=== PATIENT | male | born 1955 | race Hispanic/Latino ===

== ENCOUNTER 2017-09-11 05:45 | Day surgery (SDC) | payer OTHER ==
[2017-09-09 14:03] LABS: BASOPHILS % (AUTO) 0.4 % (0.0-5.0); HEMATOCRIT 50.5 % (42-54); MEAN CORPUSCULAR HEMOGLOBIN 29.9 pg (27.0-33.0); MEAN CORPUSCULAR HGB CONC 34.5 g/dL (32.0-36.0); MEAN CORPUSCULAR VOLUME 86.8 fL (79-99); NEUTROPHILS % (AUTO) 54.6 % (40.0-77.0); PLATELET COUNT (AUTO) 295 K/uL (130-400); RED BLOOD CELL COUNT(AUTO) 5.82 MIL/uL (4.50-6.20); RED CELL DISTRIBUTION WIDTH 13.2 % (11.0-15.5)
[2017-09-09 14:17] VITALS: BP 139/82
[2017-09-09 14:19] LABS: APPEARANCE,URINE Clear (CLEAR); BILIRUBIN,URINE Negative (NEGATIVE); COLOR,URINE Yellow (YELLOW); GLUCOSE, URINE (UA) >=1000 mg/dL (NEGATIVE); KETONES,URINE 15 mg/dL (NEGATIVE); LEUKOCYTE ESTERASE ,URINE Negative (NEGATIVE); NITRATE,URINE Negative (NEGATIVE); OCCULT BLOOD,URINE Negative (NEGATIVE); PROTEIN,URINE Negative (NEGATIVE)
[2017-09-09 14:27] LABS: INR 0.95 (0.85-1.15); PARTIAL THROMBOPLASTIN TIME 26.4 SEC (26.3-35.5)
[2017-09-09 14:28] LABS: POTASSIUM 4.1 mmol/L (3.5-5.1)
[2017-09-09 14:31] LABS: BACTERIA,URINE Rare /HPF (None Seen); SQUAMOUS EPITHELIAL CELL,UR Rare /HPF (0-2); WBC,URINE 0-1 /HPF (0-1)
[2017-09-11] VITALS (9 sets, daily range): BP systolic 108–139; BP diastolic 67–92
[~2017-09-11 05:45] MED LIST: AMLO10TA2 PO; ATOR40TA71 PO; DAPA5TAB PO; GLIP5TAB11 PO; METF500T6 PO; METO100T14 PO
[2017-09-11] MEDS ORDERED: SODIUM CHLORIDE 0.9% 1000ML 1,000 ML IV ONE (07:31)
[2017-09-11] MEDS ORDERED: INSULIN HUMULIN R 100 UNIT/ML 3ML IV SCH (08:15)
[2017-09-11] MEDS ORDERED: INSULIN HUMULIN R 100 UNIT/ML 3ML ONE (08:25)
[2017-09-11] MEDS ORDERED: IOPAMIDOL-370 75 ML VIAL IV ONE (10:28)
[2017-09-11] MEDS ORDERED: HEPARIN SODIUM 1000UNIT/ML 10ML VIAL ONE (10:28)
[2017-09-11] MEDS ORDERED: NITROGLYCERIN 5 MG/ML 10 ML VIAL IV ONE (10:28)
[2017-09-11] MEDS ORDERED: LIDOCAINE HCL 2% 20ML ONE (10:28)
[2017-09-11] MEDS ORDERED: BIVALIRUDIN 250 MG/VIAL IV ONE (10:28)
[2017-09-11] MEDS ORDERED: SODIUM CHLORIDE 0.9% 1000ML 1,000 ML IV SCH (11:22)
== END 2017-09-11 15:55 | disposition home or self-care (01) ==
LOC: DAH 05:45
PROVIDERS: ATTEND Internal Medicine Cardiovascular Disease
DX: I25.119 Atherosclerotic heart disease of native coronary artery with unspecified angina pectoris (principal); I10 Essential (primary) hypertension; E78.00 Pure hypercholesterolemia, unspecified; E11.9 Type 2 diabetes mellitus without complications; Z79.84 Long term (current) use of oral hypoglycemic drugs; Z79.899 Other long term (current) drug therapy
CPT/HCPCS: 36415; 71045; 80048; 81001; 82948 ×2; 85025; 85610; 85730; 93005; 93458; A4606; C1760; C1894; J1644; J1815; J3490 ×2; J7030; Q9967; J0583

== ENCOUNTER 2020-06-23 23:35 | Emergency (ER) | payer OTHER ==
[~2020-06-23 23:35] MED LIST changes: +ALBUHFA IH; -AMLO10TA2 PO; +APIX2.5T PO; +ASCO500T20 PO; +ASPI-1005 PO; +CHLO50TA24 PO; -DAPA5TAB PO; -GLIP5TAB11 PO; +INSU100I3 SQ; +INSU3INS3 SQ; +METF-444 PO; -METF500T6 PO; -METO100T14 PO; +METO25 PO; +OLOP5DRO14 OP; +PANT40TA54 PO; +REPA2TAB8 PO; +SILD20TA14 PO; +SODI15DR8 OP; +SYRI-1628 MC; +TAMS-1 PO; +TRIA15CR48 TP; +ZINC220C6 PO
[2020-06-24] LABS: EOSINOPHILS % (AUTO) 16.5 % (0.0-8.0); HEMATOCRIT 47.6 % (42-54); LYMPHOCYTES % (AUTO) 19.7 % (21.0-51.0); MEAN CORPUSCULAR HEMOGLOBIN 29.5 pg (27.0-33.0); MEAN CORPUSCULAR HGB CONC 33.2 g/dL (32.0-36.0); MONOCYTES % (AUTO) 9.6 % (3.0-13.0); NEUTROPHILS % (AUTO) 52.9 % (40.0-77.0); PLATELET COUNT (AUTO) 232 K/uL (130-400); RED BLOOD CELL COUNT(AUTO) 5.35 MIL/uL (4.50-6.20); RED CELL DISTRIBUTION WIDTH 14.7 % (11.0-15.5); WHITE BLOOD COUNT (AUTO) 11.5 K/uL (4.8-10.8)
[2020-06-24 00:11] LABS: CREATININE 1.3 mg/dL (0.5-1.5)
[2020-06-24 00:16] LABS: ALBUMIN 3.5 g/dL (3.5-5.0); BILIRUBIN,TOTAL 1.4 mg/dL (0.2-1.0); TOTAL PROTEIN, SERUM 7.3 g/dL (6.0-8.3)
[2020-06-24] MEDS ORDERED: CLINDAMYCIN 900 MG/D5% WATER 50 ML IV ONE (00:27)
[2020-06-24 00:35] LABS: INR 0.99 (0.85-1.15); PROTHROMBIN TIME 10.8 SEC (9.6-11.6)
[2020-06-24 00:37] LABS: PARTIAL THROMBOPLASTIN TIME 26.5 SEC (26.3-35.5)
== END 2020-06-24 01:09 | disposition home or self-care (01) ==
LOC: EDH 23:35
DX: L03.90 Cellulitis, unspecified (principal); E11.9 Type 2 diabetes mellitus without complications; I10 Essential (primary) hypertension
CPT/HCPCS: 36415; 80053; 83605; 85025; 85610; 85730; 93971; 96365; 99284; J3490

== ENCOUNTER → 2023-04-16 | Outpatient (CLI) | payer MEDICARE ==
[~2023-04-16] MED LIST changes: +AEC81 PO; -ALBUHFA IH; -APIX2.5T PO; -ASCO500T20 PO; -ATOR40TA71 PO; -CHLO50TA24 PO; +DAPA10TA PO; +ESOM20CA39 PO; +INSU100C6 SQ; -INSU100I3 SQ; +INSU100I75 SQ; -INSU3INS3 SQ; +LEVO75CA5 PO; -METO25 PO; +METO50TA18 PO; -OLOP5DRO14 OP; -PANT40TA54 PO; -REPA2TAB8 PO; +ROSU20TA73 PO; -SILD20TA14 PO; -SODI15DR8 OP; -SYRI-1628 MC; -TAMS-1 PO; -TRIA15CR48 TP; -ZINC220C6 PO
[2023-04-16 10:22] LABS: BASOPHILS # (AUTO) 0.08 K/uL (0.00-0.20); EOSINOPHILS # (AUTO) 0.74 K/uL (0.00-0.70); EOSINOPHILS % (AUTO) 9.1 % (0.0-8.0); HEMATOCRIT 51.1 % (42-54); IMMATURE GRANULOCYTE ABSOLUTE 0.02 K/uL (0-1); LYMPHOCYTES # (AUTO) 1.8 K/uL (1.0-4.8); LYMPHOCYTES % (AUTO) 22.4 % (21.0-51.0); MEAN CORPUSCULAR HEMOGLOBIN 29.1 pg (27.0-33.0); MEAN CORPUSCULAR HGB CONC 31.9 g/dL (32.0-36.0); MEAN CORPUSCULAR VOLUME 91.3 fL (79-99); MONOCYTES # (AUTO) 0.8 K/uL (0.1-1.0); MONOCYTES % (AUTO) 9.4 % (3.0-13.0); NEUTROPHILS # (AUTO) 4.7 K/uL (1.8-7.7); NEUTROPHILS % (AUTO) 57.9 % (40.0-77.0); PLATELET COUNT (AUTO) 209 K/uL (130-400); RED CELL DISTRIBUTION WIDTH 14.3 % (11.0-15.5); WHITE BLOOD COUNT (AUTO) 8.1 K/uL (4.8-10.8)
[2023-04-16 10:31] LABS: CREATININE 1.1 mg/dL (0.5-1.5); INR <= 0.93 (0.85-1.15); POTASSIUM 4.9 mmol/L (3.5-5.1); PROTHROMBIN TIME 10.6 SEC (9.6-11.6)
[2023-04-16 10:33] LABS: PARTIAL THROMBOPLASTIN TIME 27.9 SEC (26.3-35.5)
== END | disposition home or self-care (01) ==
LOC: LAB 09:51
PROVIDERS: ATTEND Internal Medicine Cardiovascular Disease
DX: I70.223 Atherosclerosis of native arteries of extremities with rest pain, bilateral legs (principal); R07.89 Other chest pain
CPT/HCPCS: 36415; 80048; 85025; 85610; 85730

== ENCOUNTER 2024-04-21 11:49 | Emergency (ER) | payer MEDICARE ==
[~2024-04-21] VITALS: Ht 177.8 cm; Wt 113.4 kg
[~2024-04-21 11:49] MED LIST changes: -ESOM20CA39 PO; +ESOM20CA51 PO; -ROSU20TA73 PO; +ROSU20TA98 PO
--- NOTE | 2024-04-21 12:31 | EKG ---
[facility] Test Date: 2024-04-21 Test Time: 12:25:08 Pat Name: SONY SMALL Department: ED Room: Gender: M Dental Insurance Coordinator: [id number] : 1955 Requested By: DANIELLE CALDERON Order Number: [id number] Reading MD: Otis Dillard Measurements Intervals [place] Rate: 71 P: 69 WV: 148 QRS: -73 QRSD: 134 T: 69 QT: 411 QTc: 450 Interpretive Statements Sinus rhythm Multiform ventricular premature complexes RBBB and LAFB Compared to ECG 10/30/2021 05:51:35 Bifascicular block no longer present Electronically Signed On 04-22-2024 20:01:35 PACE ANALYST by Otis Dillard Please click the below link to view image of tracing.
--- NOTE | 2024-04-21 12:58 | HMCIMG ---
CHEST 1VW REASON: CHEST PAIN COMPARISON: None. FINDINGS: Single view of the chest was obtained. Lungs are clear. Heart size is normal. There is no pulmonary vascular congestion. Mediastinum and bony thorax appear unremarkable. Previous median sternotomy again noted. IMPRESSION: 1. Normal single view chest x-ray.
[2024-04-21 13:00] LABS: BASOPHILS # (AUTO) 0.06 K/uL (0.00-0.20); BASOPHILS % (AUTO) 0.7 % (0.0-5.0); EOSINOPHILS # (AUTO) 0.77 K/uL (0.00-0.70); EOSINOPHILS % (AUTO) 9.1 % (0.0-8.0); HEMATOCRIT 51.5 % (42-54); IMMATURE GRANULOCYTE ABSOLUTE 0.02 K/uL (0-1); LYMPHOCYTES % (AUTO) 23.6 % (21.0-51.0); MEAN CORPUSCULAR HEMOGLOBIN 29.5 pg (27.0-33.0); MEAN CORPUSCULAR HGB CONC 32.8 g/dL (32.0-36.0); MONOCYTES # (AUTO) 0.7 K/uL (0.1-1.0); MONOCYTES % (AUTO) 8.4 % (3.0-13.0); NEUTROPHILS # (AUTO) 4.9 K/uL (1.8-7.7); PLATELET COUNT (AUTO) 222 K/uL (130-400); RED BLOOD CELL COUNT(AUTO) 5.72 MIL/uL (4.50-6.20); RED CELL DISTRIBUTION WIDTH 14.2 % (11.0-15.5); WHITE BLOOD COUNT (AUTO) 8.4 K/uL (4.8-10.8)
[2024-04-21 13:10] LABS: CREATININE 1.2 mg/dL (0.5-1.3); POTASSIUM 4.4 mmol/L (3.5-5.1)
[2024-04-21 14:15] LABS: B-TYPE NATRIURETIC PEPTIDE 26 pg/mL (0-100)
--- NOTE | 2024-04-21 14:53 | ERN ---
ED Note History of Present Illness Stated Complaint: CP Chief Complaint: Chest Pain Time Seen by MD: 11:55 Dictation: 68-year-old male presents to the ED for evaluation of chest pain onset three days ago. Patient reports palpitations and shortness a breath, but denies any other associated symptoms at this time. Patient states he was sent over by Dr. Torre for evaluation. Allergies: Coded Allergies: No Known Drug Allergies (Unverified Allergy, Unknown, 09/30/17) Home Meds Active Scripts Aspirin (ASPIRIN 81MG CHEW TAB) 81 Mg Tab.chew, 81 MG PO DAILY for 30 Days, #30 TAB.CHEW Prov:MELODIE YUN MD 10/07/17 Reported Medications Aspirin (ASPIRIN 81 MG ECTAB) 81 Mg Ectab, 81 MG PO DAILY, TAB.EC 12/11/22 Esomeprazole Magnesium (Esomeprazole Magnesium) 20 Mg Capsule.dr, 20 MG PO BID, CAP 12/11/22 Rosuvastatin Calcium (Rosuvastatin Calcium) 20 Mg Tablet, 20 MG PO DAILY, TAB 12/11/22 Levothyroxine Sodium (Levothyroxine) 75 Mcg Capsule, 75 MCG PO ACBKFST, CAP 12/11/22 Dapagliflozin Propanediol (Farxiga) 10 Mg Tablet, 10 MG PO DAILY, TAB 12/11/22 Metoprolol Tartrate (Metoprolol Tartrate) 50 Mg Tablet, 50 MG PO BID, TAB 12/11/22 Insulin Aspart (Novolog) 100 Unit/1 Ml Cartridge, 10 UNITS SQ HS, CARTRIDGE 12/11/22 Insulin Aspart (Novolog) 100 Unit/1 Ml Cartridge, 15 UNITS SQ ACLUNCH, CARTRIDGE 12/11/22 Insulin Glargine,Hum.rec.anlog (Basaglar Tempo Pen U-100) 100 Unit/1 Ml Insuln.pen, 33 UNIT SQ HS, SYRINGE 12/11/22 Insulin Aspart (Novolog) 100 Unit/1 Ml Cartridge, 19 UNITS SQ ACBKFST, CARTRIDGE 12/11/22 Metformin HCl (Metformin HCl) 500 Mg Tablet, 500 MG PO BID, TAB 03/21/20 Past Medical History Past Medical History: A-Fib, Diabetes-Type II, High Cholesterol, Heart Disease, Hypertension Additional Past Medical Hx: COVID X 2 Surgical History: CABG Social History: Negative Review of System Dictation Constitutional: Negative for fever,chills, and weight loss Eyes: Negative for injury, pain,redness, and discharge ENT: Negative for injury,pain or swelling Cardiovascular: Positive for chest pain and palpitations Respiratory: Positive for shortness of breath negative for cough, and wheezing, Abdomen/GI: Negative for abdominal pain, nausea, vomiting, diarrhea, and constipation Back: Negative for injury and pain : Negative for injury, bleeding and discharge MS/Extremity: Negative for injury and deformity Skin: Negative for rash, and discoloration Neuro: Negative for headache, weakness, numbness, tingling, and seizure Psych: Negative for suicide ideation, homicidal ideation, and hallucinations Initial Vital Sign VS Vital Signs Date Time Temp Pulse Resp B/P (MAP) Pulse Ox O2 Delivery O2 Flow Rate FiO2 04/21/24 13:01 98.6 68 20 156/88 98 Room Air 0 04/21/24 15:50 21 Physical Exam Dictation General: awake, alert, NAD Head/Face: Normocephalic, atraumatic Eyes: PERRL, EOMI, vision at baseline ENT: oral cavity clear, TMs clear, no signs of infection Neck: Trachea midline, supple, no nuchal rigidity Cardiovascular: RRR, normal S1/S2, No MRGs, no JVD Respiratory: CTAB, no respiratory distress, No rales or wheezes Abdomen: Soft, non-tender, non-distended, normal bowel sounds, no guarding or rebound. Skin: Warm, dry, normal turgor, no rash MS/Extremity: Pulses equal, no cyanosis, neurovascular intact, FROM Neuro: COAx4, GCS 15, strength 5/5, CN 2-12 intact, normal cerebellar exam, normal gait, Psych: Normal behavior, mood, and affect normal Results (Laboratory/Radiology) Laboratory/Radiology Laboratory Tests Test 04/21/24 12:32 04/21/24 13:29 White Blood Count 8.4 K/uL (4.8-10.8) Red Blood Count 5.72 MIL/uL (4.50-6.20) Hemoglobin 16.9 g/dL (14.0-18.0) Hematocrit 51.5 % (42-54) Mean Corpuscular Volume 90.0 fL (79-99) Mean Corpuscular Hemoglobin 29.5 pg (27.0-33.0) Mean Corpuscular Hemoglobin Concent 32.8 g/dL (32.0-36.0) Red Cell Distribution Width 14.2 % (11.0-15.5) Platelet Count 222 K/uL (130-400) Mean Platelet Volume 9.5 fL (7.5-10.5) Immature Granulocyte % (Auto) 0.2 % (0-1) Neutrophils (%) (Auto) 58.0 % (40.0-77.0) Lymphocytes (%) (Auto) 23.6 % (21.0-51.0) Monocytes (%) (Auto) 8.4 % (3.0-13.0) Eosinophils (%) (Auto) 9.1 % (0.0-8.0) H Basophils (%) (Auto) 0.7 % (0.0-5.0) Neutrophils # (Auto) 4.9 K/uL (1.8-7.7) Lymphocytes # (Auto) 2.0 K/uL (1.0-4.8) Monocytes # (Auto) 0.7 K/uL (0.1-1.0) Eosinophils # (Auto) 0.77 K/uL (0.00-0.70) H Basophils # (Auto) 0.06 K/uL (0.00-0.20) Absolute Immature Granulocyte (auto 0.02 K/uL (0-1) Nucleated Red Blood Cells 0.0 % (0.0-0.19) Sodium Level 139 mmol/L (136-145) Potassium Level 4.4 mmol/L (3.5-5.1) Chloride Level 103 mmol/L (101-111) Carbon Dioxide Level 33 mmol/L (21-32) H Blood Urea Nitrogen 17 mg/dL (7-18) Creatinine 1.2 mg/dL (0.5-1.3) Glomerular Filtration Rate Calc 66 mL/min (>90) Random Glucose 240 mg/dL (70-105) H Total Calcium 9.0 mg/dL (8.5-10.1) Total Creatine Kinase 151 U/L (21-232) # B-Type Natriuretic Peptide 26 pg/mL (0-100) Troponin I < 0.05 ng/mL (0.00-0.05) Labs Reviewed?: Yes ED Course ED Course Orders Procedure Category Date Status Time Vital Signs Per CPOE 04/21/24 Transmitted Routine 11:54 B-Type Natriuretic LAB 04/21/24 Complete Peptide 11:54 Chest 1vw RAD 04/21/24 Resulted 11:54 12 Lead Ekg Tracing- EKG 04/21/24 Complete Technical 11:54 Oxygen By Nc/Pulse Ox CPOE 04/21/24 Transmitted 11:54 Maintain Iv CPOE 04/21/24 Transmitted 11:54 Iv Insertion CPOE 04/21/24 Transmitted 11:54 Cardiac Monitoring CPOE 04/21/24 Transmitted 11:54 Pulse Oximetry With CPOE 04/21/24 Transmitted Vs And Prn 11:54 Cbc With Differential LAB 04/21/24 Complete 11:54 Activity: Br W/Brp CPOE 04/21/24 Transmitted With Assist 11:54 Creatine Kinase, Total LAB 04/21/24 Complete 11:54 Troponin Poc Order LAB 04/21/24 Complete Only 11:54 Bedside Troponin-I LAB.ER 04/21/24 Complete (Poc) 11:54 Basic Metabolic Panel LAB 04/21/24 Complete 11:54 Vital Signs Date Time Temp Pulse Resp B/P (MAP) Pulse Ox O2 Delivery O2 Flow Rate FiO2 04/21/24 15:50 97.7 77 18 132/71 98 Room Air* 0 21 04/21/24 13:01 98.6 68 20 156/88 98 Room Air 0 Medical Decision Making MDM MDM: Differential diagnosis: Chest pain Risk of complication and/or morbidity or mortality of patient management: None Medications-Per medication reconciliation Need for hospitalization: Patient does not meet criteria for hospitalization. Need for emergency major/minor surgery: No There are no social concerns with this patient. Prescription drug management Prescriptions will include symptomatic care I independently interpreted the test that were performed, results were reviewed by me and considered findings on radiology if ordered. Medical management and examination interpretation discussions were had by me with other qualified healthcare professionals as indicated for the patient's care. DX & DISP Departure Condition: Stable Referrals: JOSEPH CHAVIS MD (PCP) I have reviewed, & agreed with my scribe's, documentation. (I Margareth Cruz am acting as a scribe for RIWIN Cruz) I performed the substantive portion of the visit. I have reviewed and personally made and approve the management plan that is documented in the notes by myself or the DEANNA. I acknowledge full responsibility for the patient's management plan. I personally scribed for LANE CRUZ ([facility]) on 04/21/24 at 14:53. Electronically submitted by Margareth Cruz ([facility]). LANE CRUZ Apr 21, 2024 14:53
--- NOTE | 2024-04-21 14:56 | ERN ---
General Chief Complaint: Chest Pain Stated Complaint: CP Time Seen by MD: 11:55 Time Seen by Midlevel: 11:55 Source: patient History of Present Illness Initial Comments Patient is a 68-year-old male with a past medical history of type 2 diabetes, hyperlipidemia, coronary artery disease, and atrial fibrillation presenting to the emergency department with chest pain that started three days ago. Associated symptoms include shortness of breath and palpitations. Patient does report feeling significantly improved today but his veterinary practice manager sent him over just to be on the safe side. Patient has no other complaints on arrival Allergies: Coded Allergies: No Known Drug Allergies (Unverified Allergy, Unknown, 09/30/17) Home Meds Active Scripts Aspirin (ASPIRIN 81MG CHEW TAB) 81 Mg Tab.chew, 81 MG PO DAILY for 30 Days, #30 TAB.CHEW Prov:MELODIE YUN MD 10/07/17 Reported Medications Aspirin (ASPIRIN 81 MG ECTAB) 81 Mg Ectab, 81 MG PO DAILY, TAB.EC 12/11/22 Esomeprazole Magnesium (Esomeprazole Magnesium) 20 Mg Capsule.dr, 20 MG PO BID, CAP 12/11/22 Rosuvastatin Calcium (Rosuvastatin Calcium) 20 Mg Tablet, 20 MG PO DAILY, TAB 12/11/22 Levothyroxine Sodium (Levothyroxine) 75 Mcg Capsule, 75 MCG PO ACBKFST, CAP 12/11/22 Dapagliflozin Propanediol (Farxiga) 10 Mg Tablet, 10 MG PO DAILY, TAB 12/11/22 Metoprolol Tartrate (Metoprolol Tartrate) 50 Mg Tablet, 50 MG PO BID, TAB 12/11/22 Insulin Aspart (Novolog) 100 Unit/1 Ml Cartridge, 10 UNITS SQ HS, CARTRIDGE 12/11/22 Insulin Aspart (Novolog) 100 Unit/1 Ml Cartridge, 15 UNITS SQ ACLUNCH, CARTRIDGE 12/11/22 Insulin Glargine,Hum.rec.anlog (Basaglar Tempo Pen U-100) 100 Unit/1 Ml Insuln.pen, 33 UNIT SQ HS, SYRINGE 12/11/22 Insulin Aspart (Novolog) 100 Unit/1 Ml Cartridge, 19 UNITS SQ ACBKFST, CARTRIDGE 12/11/22 Metformin HCl (Metformin HCl) 500 Mg Tablet, 500 MG PO BID, TAB 03/21/20 Past Medical History Past Medical History: A-Fib, Diabetes-Type II, High Cholesterol, Heart Disease, Hypertension Medical History Other: COVID X 2 Past Surgical History: CABG Social History Social History: Negative ROS Dictation CONSTITUTIONAL: Negative except for HPI HEAD/FACE: Negative except for HPI EENT: Negative except for HPI RESPIRATORY: Negative except for HPI GASTROINTESTINAL/ABDOMINAL: Negative except for HPI GENITOURINARY: Negative except for HPI MUSCULOSKELETAL: Negative except for HPI INTEGUMENTARY: Negative except for HPI NEUROLOGICAL/PSYCH: Negative except for HPI HEMATOLOGIC/LYMPHATIC: Negative except for HPI All Systems Negative, Except as noted above. 13 point review of systems assessed and all negative except for above. Physical Exam Physical Exam Dictation Vital Signs reviewed General Appearance: Alert, oriented x 3, no acute distress, well developed, nourished. Head and Face: non-traumatic. Eyes: PERRL, pink conjunctivas, eyelid no trauma, anterior chamber with arcus senilis. Ears: Pinnas intact and no signs of trauma or erythema ear canals clear and no discharge TM no erythema Nose: No discharge, no bleeding. Oropharynx: Mouth normal, tongue pink, pharynx clear,no erythema, tonsils no exudates, no abscesses noted, mucous membrane moist Neck: Supple, non-tender, no thyromegaly, no masses, no JVD, no bruits Breast:Deferred Chest:No tenderness, no crepitus, no paradoxical movement, no retractions Lungs:Clear, well-ventilated, symmetric, no rales, no wheezing, no rhonchi, no stridor, good breath sounds bilaterally Heart: Regular rate, regular rhythm, no murmur, no gallops Vascular: no peripheral edema, Abdomen: Soft, positive bowel sounds, nondistended, no guarding, nontender, no rebound, no masses no hepatomegaly, no splenomegaly, no Biggs's sign, no hernias. Rectal: Deferred Genital: Deferred Neurological: Normal speech, motor function intact, sensory function intact Musculoskeletal: Neck nontender, full range of motion, back nontender, full range of motion, Extremities: nontender, full range of motion Skin: Color pink, dry, no turgor, no rash, no lacerations, no abrasions, no contusions. Lymphatic: Deferred Results Laboratory and Microbiology Lab and Micro Result Laboratory Tests Test 04/21/24 12:32 04/21/24 13:29 White Blood Count 8.4 K/uL (4.8-10.8) Red Blood Count 5.72 MIL/uL (4.50-6.20) Hemoglobin 16.9 g/dL (14.0-18.0) Hematocrit 51.5 % (42-54) Mean Corpuscular Volume 90.0 fL (79-99) Mean Corpuscular Hemoglobin 29.5 pg (27.0-33.0) Mean Corpuscular Hemoglobin Concent 32.8 g/dL (32.0-36.0) Red Cell Distribution Width 14.2 % (11.0-15.5) Platelet Count 222 K/uL (130-400) Mean Platelet Volume 9.5 fL (7.5-10.5) Immature Granulocyte % (Auto) 0.2 % (0-1) Neutrophils (%) (Auto) 58.0 % (40.0-77.0) Lymphocytes (%) (Auto) 23.6 % (21.0-51.0) Monocytes (%) (Auto) 8.4 % (3.0-13.0) Eosinophils (%) (Auto) 9.1 % (0.0-8.0) H Basophils (%) (Auto) 0.7 % (0.0-5.0) Neutrophils # (Auto) 4.9 K/uL (1.8-7.7) Lymphocytes # (Auto) 2.0 K/uL (1.0-4.8) Monocytes # (Auto) 0.7 K/uL (0.1-1.0) Eosinophils # (Auto) 0.77 K/uL (0.00-0.70) H Basophils # (Auto) 0.06 K/uL (0.00-0.20) Absolute Immature Granulocyte (auto 0.02 K/uL (0-1) Nucleated Red Blood Cells 0.0 % (0.0-0.19) Sodium Level 139 mmol/L (136-145) Potassium Level 4.4 mmol/L (3.5-5.1) Chloride Level 103 mmol/L (101-111) Carbon Dioxide Level 33 mmol/L (21-32) H Blood Urea Nitrogen 17 mg/dL (7-18) Creatinine 1.2 mg/dL (0.5-1.3) Glomerular Filtration Rate Calc 66 mL/min (>90) Random Glucose 240 mg/dL (70-105) H Total Calcium 9.0 mg/dL (8.5-10.1) Total Creatine Kinase 151 U/L (21-232) # B-Type Natriuretic Peptide 26 pg/mL (0-100) Troponin I < 0.05 ng/mL (0.00-0.05) Labs Reviewed?: Yes MDM MDM: Differential diagnosis: ACS, pleurisy, pneumonia, pneumothorax, cardiac a rrhythmia There are no social concerns with this patient. Prescription drug management Prescriptions will include: None Medical management and examination interpretation discussions were had by me with other qualified healthcare professionals as indicated for the patient's care. ED Course Orders Procedure Category Date Status Time Vital Signs Per CPOE 04/21/24 Transmitted Routine 11:54 B-Type Natriuretic LAB 04/21/24 Complete Peptide 11:54 Chest 1vw RAD 04/21/24 Resulted 11:54 12 Lead Ekg Tracing- EKG 04/21/24 Complete Technical 11:54 Oxygen By Nc/Pulse Ox CPOE 04/21/24 Transmitted 11:54 Maintain Iv CPOE 04/21/24 Transmitted 11:54 Iv Insertion CPOE 04/21/24 Transmitted 11:54 Cardiac Monitoring CPOE 04/21/24 Transmitted 11:54 Pulse Oximetry With CPOE 04/21/24 Transmitted Vs And Prn 11:54 Cbc With Differential LAB 04/21/24 Complete 11:54 Activity: Br W/Brp CPOE 04/21/24 Transmitted With Assist 11:54 Creatine Kinase, Total LAB 04/21/24 Complete 11:54 Urinalysis Profile LAB 04/21/24 Logged 11:54 Troponin Poc Order LAB 04/21/24 Complete Only 11:54 Bedside Troponin-I LAB.ER 04/21/24 In Process (Poc) 11:54 Basic Metabolic Panel LAB 04/21/24 Complete 11:54 Vital Signs Date Time Temp Pulse Resp B/P (MAP) Pulse Ox O2 Delivery O2 Flow Rate FiO2 04/21/24 13:01 98.6 68 20 156/88 98 Room Air 0 [place] [address] [place] [id number] IMAGING REPORT Signed PATIENT: SONY SMALL MR#: [id number] : 1955 SEX: M AGE: 68 LOCATION: [facility] ORDER 54 STATUS: [facility] ER REPORT#: [id number] SERVICE [id number] REASON: CHEST PAIN ORDERING PHYSICIAN: DANIELLE CALDERON MD PROCEDURE: CXR1VW - CHEST 1VW CHEST 1VW REASON: CHEST PAIN COMPARISON: None. FINDINGS: Single view of the chest was obtained. Lungs are clear. Heart size is normal. There is no pulmonary vascular congestion. Mediastinum and bony thorax appear unremarkable. Previous median sternotomy again noted. IMPRESSION: 1. Normal single view chest x-ray. DICTATED BY: MARISSA MURRIETA MD DATE: 04/21/241254 ELECTRONICALLY SIGNED BY: MARISSA MURRIETA MD DATE: 04/21/241257 DX & DISP Disposition: Discharge Departure Impression: Primary Impression: Non-cardiac chest pain Condition: Stable Additional Instructions: Your blood work today is unremarkable. Your cardiac enzymes are negative. Your chest x-ray is normal. Your EKG does not show any evidence of atrial fibrillation or a heart attack. Please follow up with your primary care doctor and veterinary practice manager for outpatient evaluation. Return to the ER for any new or worsening symptoms Referrals: JOSEPH CHAVIS MD (PCP) Time of Disposition: 14:55 I have reviewed the case, and I agree with, Diagnosis and Plan I performed the substantive portion of the visit. I have reviewed and personally made and approve the management plan that is documented in the note by myself or the DEANNA. I acknowledge for responsibility for the patient's management plan. LANE FITCH Apr 21, 2024 14:56
[2024-04-21 15:50] VITALS: BP 132/71; PULSE 77; RESP 18; TEMP 97.7; O2SAT 98
== END 2024-04-21 16:07 | disposition home or self-care (01) ==
LOC: EDH 11:49
DX: R07.89 Other chest pain (principal); E11.9 Type 2 diabetes mellitus without complications; E78.00 Pure hypercholesterolemia, unspecified; I11.9 Hypertensive heart disease without heart failure; I25.10 Atherosclerotic heart disease of native coronary artery without angina pectoris; I49.3 Ventricular premature depolarization; Z79.82 Long term (current) use of aspirin; Z79.84 Long term (current) use of oral hypoglycemic drugs; Z79.899 Other long term (current) drug therapy; Z95.1 Presence of aortocoronary bypass graft
CPT/HCPCS: 36415; 71045; 80048; 82550; 83880; 84484; 85025; 93005; 99285